=== PATIENT | female | born 1990 | race Caucasian/White ===

== ENCOUNTER 2024-08-15 12:52 | Emergency (ER) | payer OTHER, SELFPAY ==
[2024-08-15 12:59] VITALS: BP 165/109
--- NOTE | 2024-08-15 13:39 | ED.GENMED ---
History of Present Illness
General
Chief Complaint: Abdominal Pain
Source: patient
Exam Limitations: none
Time Seen by Provider: 08/15/24 13:15
Nursing documentation reviewed up to this point in time: agreed with
History of Present Illness
History of Present Illness:
34-year-old female past medical history of PCOS presenting to the emergency department today with concerns of right lower quadrant pain worsening over the past 2 days. Days seen in urgent care sent to the ER for assessment of appendicitis. No
history of abdominal surgeries. Did have a slight white count at the urgent care. Some nausea no vomiting no changes in bowel movements or urination.
Review of Systems
Review of Systems
Allergies reviewed?: Yes
All Other Systems: ROS reviewed and negative except as documented in HPI and ROS
Phy Exam
Physical Exam
Physical Exam:
GENERAL: Alert , in no apparent distress
EYE: pupils equal and reactive
NECK: Supple, no significant adenopathy.
ENT: o/p clr, mmm.
CARDIAC: Regular rate and rhythm .
LUNGS: Clear breath sounds bilaterally, no acute respiratory distress, no wheezes/rales/rhonchi
ABDOMEN: Right lower quadrant abdominal pain otherwise all benign abdomen
NEUROLOGICAL: Alert and oriented, no focal neuro deficits
SKIN: Warm and dry, skin intact.
MUSCULOSKELETAL: No edema, well perfused.
PSYCH: Normal and appropriate interaction.
Course
Orders/Labs/Results
Orders:
Orders
08/15/24 13:19
CT Abd/Pel (IV only)-[facility] only Urgent
Comment:
Reason For Exam: RLQ pain
08/15/24 13:18
08/15/24 13:18
Vital Signs
Initial and Last Documented VS:
Initial Vital Signs
Temp Pulse Resp BP Pulse Ox
99.1 F 108 18 165/109 99
08/15/24 12:59 08/15/24 12:59 08/15/24 12:59 08/15/24 12:59 08/15/24 12:59
Last Documented Vital Signs
Temp Pulse Resp BP Pulse Ox
99.1 F 99 18 137/93 99
08/15/24 12:59 08/15/24 18:25 08/15/24 18:25 08/15/24 18:25 08/15/24 18:25
MDM/Problems Addressed
MDM/Problems Addressed:
34-year-old female presenting to the emergency department today with concerns of right lower quadrant abdominal pain worsening over the past 2 days. Does have reproducible discomfort to the right lower quad on examination. Plan for CT scan for
further assessment. CT scan pending when care transition to .
*Critical Care Note
Total Time (30-74mins, 75-104mins- exclusive of procedures): Not Applicable
ED Attending Note
-
Portions of this chart may have been created with voice recognition software.� Occasional wrong word or��sound alike� substitutions may have occurred due to the inherent limitations of voice recognition software.
Discharge Plan
Departure
Patient Disposition: Home (Routine Discharge)
Date of Disposition: 08/15/24
Time of Disposition: 18:16
Patient with high blood pressure during this ER visit?: No
Condition: Good
Discharge Problem:
Abdominal pain
Instructions: Constipation, Adult (DC), Abdominal Pain
Prescriptions:
No Action
Blisovi Fe 07/30 (28)
1 tab PO DAILY
Referrals:
Yoiur, Dcotor [Other] - As needed
NONE,* [Family Provider] -
Activity Restrictions/Additional Instructions:
As we discussed, your workup here today shows nothing worrisome. Specifically no indication of appendicitis
You have a moderate amount of stool in your bowel, you may be constipated which can aggravate abdominal pain.
Tylenol or ibuprofen as needed for pain.
Interventions
Interventions:
*Risk Screen - Suicide Last Done: 08/15/24 18:30
*General Assessment Last Done: 08/15/24 18:30
*Neglect/Abuse Screening Last Done: 08/15/24 18:30
ED- Fall Risk Assessment Last Done: 08/15/24 18:30
*ED COVID-19 Vaccine History Last Done: 08/15/24 13:55
*Nursing Disposition Last Done: 08/15/24 18:30
XU-[id number]-[id number] Assessment Last Done: 08/15/24 13:55
Discharge Date and Time
Discharge Date/Time: 08/15/24 18:30
Print Language: PASHTO
[2024-08-15 18:25] VITALS: BP 137/93
== END 2024-08-15 18:30 | disposition home or self-care (01) ==
LOC: EMR 12:52
PROVIDERS: EMERGENCY PHYSICIAN Emergency Medicine
DX: R10.31 Right lower quadrant pain (principal); E28.2 Polycystic ovarian syndrome
CPT/HCPCS: 99284; 74177; Q9967